=== PATIENT | male | born 1950 | race Caucasian/White ===

== ENCOUNTER → 2016-05-30 | Outpatient (CLI) | payer MEDICARE ==
--- NOTE | 2016-05-30 16:05 | REP ---
Left shoulder series: Three views. History: Painful left shoulder. Findings: There is osteoarthritic hypertrophy at the AC joint. Glenohumeral articulation is normally aligned. There are old granulomatous calcifications visible incidentally in the left lung. Periarticular soft tissues are unremarkable. Impression: Mild AC joint osteoarthritic spurring. No acute bony abnormality. Signed by Ean Kaba MD 05/30/2016 04:24 P
== END ==
LOC: M WUC 15:01
PROVIDERS: ATTEND Physician Assistant
DX: M25.512 Pain in left shoulder (principal)